=== PATIENT | male | born 1955 | race Caucasian/White ===

== ENCOUNTER 2017-08-27 22:41 | Inpatient (IN) | payer OTHER ==
[2017-08-27 23:10] LABS: ADD MAN DIFF? NO
[2017-08-27 23:14] LABS: WHITE BLOOD COUNT 14.3 10^3/ul (4.8-10.8)
[2017-08-27 23:14] LABS: BASOPHILS % 0.3 % (0.0-2.0); HEMOGLOBIN 11.5 g/dl (14.0-18.0); LYMPHOCYTES # 0.9 10^3/ul (0.8-2.9); LYMPHOCYTES % 6.2 % (15.0-51.0); MEAN CORPUSCULAR HEMOGLOBIN 28.6 pg (29.0-33.0); MEAN CORPUSCULAR HGB CONC 33.8 g/dl (32.0-37.0); MEAN CORPUSCULAR VOLUME 84.6 fl (82.0-101.0); MEAN PLATELET VOLUME 11.4 fl (7.4-10.4); MONOCYTE # 1.1 10^3/ul (0.3-0.9); MONOCYTES % 7.7 % (0.0-11.0); NEUTROPHIL # 12.2 10^3/ul (1.6-7.5); NEUTROPHILS % 85.4 % (39.0-77.0); PLATELET COUNT 205 10^3/UL (140-415); RED BLOOD COUNT 4.02 10^6/ul (4.70-6.10); RED CELL DISTRIBUTION WIDTH 17.2 % (11.5-14.5)
[2017-08-27] MEDS: SOD CHLORIDE 0.9% 500 ML IV (23:27)
[2017-08-27 23:30] LABS: ALANINE AMINOTRANSFERASE 17 IU/L (13-69); ALBUMIN 3.1 g/dl (3.3-4.9); ALBUMIN/GLOBULIN RATIO 0.91; ALKALINE PHOSPHATASE 88 IU/L (42-121); ANION GAP 34 (8-16); ASPARTATE AMINO TRANSFERASE 31 IU/L (15-46); BILIRUBIN,INDIRECT 0.4 mg/dl (0-1.1); BILIRUBIN,TOTAL 0.4 mg/dl (0.2-1.3); BLOOD UREA NITROGEN 36 mg/dl (7-20); CALCIUM 10.8 mg/dl (8.4-10.2); CARBON DIOXIDE 11 mmol/L (21-31); CHLORIDE 108 mmol/L (97-110); CREATININE 3.38 mg/dl (0.61-1.24); GLUCOSE 127 mg/dl (70-220); POTASSIUM 5.4 mmol/L (3.5-5.1); SODIUM 148 mmol/L (135-144); TOTAL PROTEIN 6.5 g/dl (6.1-8.1)
[2017-08-27 23:42] LABS: B-TYPE NATRIURETIC PEPTIDE 5080 PG/ML (0-125); TROPONIN-I 0.013 ng/ml (0.00-0.12)
[2017-08-28] MEDS: AZTREONAM 1 GM/NS (PMX) 50 ML IVPB (02:03)
[2017-08-28] MEDS ORDERED: SOD CHLORIDE 0.9% 1,000 ML IV (02:32)
[2017-08-28] MEDS: VANCOMYCIN 1 GM (PMX) 250 ML IVPB (02:50)
[2017-08-28] MEDS ORDERED: ACETAMINOPHEN 325 MG TAB PO (03:00)
[2017-08-28] MEDS ORDERED: morphine 2 MG INJ IV (03:00)
[2017-08-28] MEDS ORDERED: NACL 0.9% 3 ML SYG IV (03:00)
[2017-08-28] MEDS ORDERED: GLUCAGON 1 MG INJ IM (03:00)
[2017-08-28] MEDS ORDERED: GLUCOSE GEL 15 GRAM TUBE BUCCAL (03:00)
[2017-08-28] MEDS ORDERED: IPRATROPIUM (NEB) 0.5 MG/2.5 ML AMP HHN (03:00)
[2017-08-28] MEDS ORDERED: DEXTROSE 50% 50 ML SYRINGE IV ×2 (03:00)
[2017-08-28] MEDS ORDERED: ONDANSETRON 4 MG INJ IV (03:00)
[2017-08-28] MEDS ORDERED: GLUCOSE GEL 15 GRAM TUBE PO ×2 (03:00)
[2017-08-28] MEDS: NA POLYST SULFON 15 GM/60 ML BTL PO (03:00)
[2017-08-28] MEDS ORDERED: LEVALBUTEROL (NEB) 0.63 MG/3 ML AMP HHN (03:00)
[2017-08-28] MEDS ORDERED: AZTREONAM 2 GM in DEXTROSE 5% 100 ML IVPB (03:00)
[2017-08-28 03:39] LABS: LACTIC ACID 2.5 mmol/L (0.5-2.0)
[2017-08-28 06:01] LABS: ADD MAN DIFF? NO
[2017-08-28 06:11] LABS: WHITE BLOOD COUNT 13.5 10^3/ul (4.8-10.8)
[2017-08-28 06:11] LABS: BASOPHIL # 0.1 10^3/ul (0.0-0.1); BASOPHILS % 0.4 % (0.0-2.0); HEMATOCRIT 32.7 % (42.0-52.0); LYMPHOCYTES # 1.1 10^3/ul (0.8-2.9); LYMPHOCYTES % 7.8 % (15.0-51.0); MEAN CORPUSCULAR HEMOGLOBIN 28.4 pg (29.0-33.0); MEAN CORPUSCULAR HGB CONC 33.6 g/dl (32.0-37.0); MEAN CORPUSCULAR VOLUME 84.5 fl (82.0-101.0); MEAN PLATELET VOLUME 12.4 fl (7.4-10.4); MONOCYTE # 1.1 10^3/ul (0.3-0.9); MONOCYTES % 8.1 % (0.0-11.0); NEUTROPHIL # 11.3 10^3/ul (1.6-7.5); NEUTROPHILS % 83.3 % (39.0-77.0); PLATELET COUNT 174 10^3/UL (140-415); POSITIVE DIFF @See below; RED BLOOD COUNT 3.87 10^6/ul (4.70-6.10); RED CELL DISTRIBUTION WIDTH 16.9 % (11.5-14.5)
[2017-08-28 06:29] LABS: LACTIC ACID 1.7 mmol/L (0.5-2.0)
[2017-08-28 06:39] LABS: ALANINE AMINOTRANSFERASE 23 IU/L (13-69); ALBUMIN 2.9 g/dl (3.3-4.9); ALBUMIN/GLOBULIN RATIO 0.87; ALKALINE PHOSPHATASE 85 IU/L (42-121); ANION GAP 32 (8-16); ASPARTATE AMINO TRANSFERASE 17 IU/L (15-46); BILIRUBIN,INDIRECT 0.3 mg/dl (0-1.1); BILIRUBIN,TOTAL 0.3 mg/dl (0.2-1.3); BLOOD UREA NITROGEN 38 mg/dl (7-20); CALCIUM 10.6 mg/dl (8.4-10.2); CARBON DIOXIDE 12 mmol/L (21-31); CHLORIDE 110 mmol/L (97-110); CREATININE 3.39 mg/dl (0.61-1.24); GLUCOSE 139 mg/dl (70-220); POTASSIUM 4.6 mmol/L (3.5-5.1); SODIUM 149 mmol/L (135-144); TOTAL PROTEIN 6.2 g/dl (6.1-8.1)
[2017-08-28 06:53] LABS: CREATINE KINASE < 20 IU/L (23-200); TROPONIN-I < 0.012 ng/ml (0.00-0.12)
[2017-08-28] MEDS ORDERED: PENDING SANTYL ORDER FOR WOUND CARE XX (07:00)
[2017-08-28] MEDS: INSULIN ASPART [NOVOLOG] 3 ML PEN SC ×4 (08:27→22:20)
[2017-08-28] MEDS: HEPARIN 5,000 UNIT/0.5 ML VIAL SC ×2 (08:28→22:08)
[2017-08-28] MEDS ORDERED: VANCOMYCIN IV PER PHARMACY XX (09:00)
[2017-08-28 10:30] LABS: LACTIC ACID 1.4 mmol/L (0.5-2.0)
[2017-08-28 10:44] LABS: CK-MB 0.89 ng/ml (0.0-2.4); CREATINE KINASE < 20 IU/L (23-200); TROPONIN-I < 0.012 ng/ml (0.00-0.12)
[2017-08-28] MEDS ORDERED: AZTREONAM 1 GM/NS (PMX) 50 ML IVPB (11:00)
[2017-08-28] MEDS: AZTREONAM 0.5 GM in SOD CHLORIDE 0.9% 50 ML IVPB ×2 (13:09→22:02)
[2017-08-28] MEDS: INSULIN GLARGINE [LANtus] 3 ML PEN SC ×2 (20:00→22:20)
[2017-08-28] MEDS ORDERED: COLLAGENASE 30 GM TUBE TOP (23:45)
[2017-08-29] MEDS ORDERED: DOPamine-D5W 1.6 MG/ML 250 ML
[2017-08-29] MEDS: INSULIN ASPART [NOVOLOG] 3 ML PEN SC ×7 (01:59→20:58)
[2017-08-29] MEDS ORDERED: ACCU-CHEK XX ×2 (02:00)
[2017-08-29 05:21] LABS: WHITE BLOOD COUNT 10.3 10^3/ul (4.8-10.8)
[2017-08-29 05:21] LABS: HEMATOCRIT 31.1 % (42.0-52.0); HEMOGLOBIN 10.4 g/dl (14.0-18.0); MEAN CORPUSCULAR HEMOGLOBIN 27.7 pg (29.0-33.0); MEAN CORPUSCULAR HGB CONC 33.4 g/dl (32.0-37.0); MEAN CORPUSCULAR VOLUME 82.7 fl (82.0-101.0); MEAN PLATELET VOLUME 12.5 fl (7.4-10.4); PLATELET COUNT 178 10^3/UL (140-415); POSITIVE DIFF @See below; RED BLOOD COUNT 3.76 10^6/ul (4.70-6.10); RED CELL DISTRIBUTION WIDTH 17.1 % (11.5-14.5)
[2017-08-29 05:22] LABS: ADD MAN DIFF? YES
[2017-08-29 05:56] LABS: ANION GAP 20 (8-16); BLOOD UREA NITROGEN 54 mg/dl (7-20); CALCIUM 10.5 mg/dl (8.4-10.2); CARBON DIOXIDE 21 mmol/L (21-31); CHLORIDE 112 mmol/L (97-110); CREATININE 3.66 mg/dl (0.61-1.24); GLUCOSE 222 mg/dl (70-220); MAGNESIUM 1.9 mg/dl (1.7-2.5); PHOSPHORUS 2.6 mg/dl (2.5-4.9); POTASSIUM 3.4 mmol/L (3.5-5.1); SODIUM 150 mmol/L (135-144)
[2017-08-29] MEDS ORDERED: DEXTROSE 50% 50 ML SYRINGE (07:00)
[2017-08-29] MEDS ORDERED: ETOMIDATE 20 MG INJ (07:00)
[2017-08-29] MEDS ORDERED: NA BICARBONATE 8.4% 50 ML SYG (07:00)
[2017-08-29] MEDS ORDERED: AMIODARONE 150 MG INJ (07:00)
[2017-08-29] MEDS ORDERED: CA CHLORIDE 10% 10 ML SYRINGE (07:00)
[2017-08-29] MEDS ORDERED: LIDOCAINE 100 MG SYRINGE (07:00)
[2017-08-29] MEDS ORDERED: SUCCINYLCHOLINE CHLORIDE 100 MG/5 ML SYG IV (07:00)
[2017-08-29] MEDS ORDERED: EPINEPHrine 0.1 MG/ML SYG (07:00)
[2017-08-29 07:15] LABS: ANISOCYTOSIS 1+ (0-0); BAND NEUTROPHILS #M 1.4 10^3/ul (0.0-0.6); BAND NEUTROPHILS % (M) 14 % (0-4); BURR CELLS 3+ (0-0); GIANT THROMBO% (M) 1 % (0-0); HYPOCHROMASIA 1+ (0-0); LYMPHOCYTES #M 1.1 10^3/ul (0.8-2.9); LYMPHOCYTES % (M) 11 % (15-51); MONOCYTE #M 0.7 10^3/ul (0.3-0.9); MONOCYTES % (M) 7 % (0-11); PLATELET ESTIMATE NORMAL; POIKILOCYTOSIS 3+ (0-0); SEG NEUT #M 7.1 10^3/ul (1.6-7.5); SEGMENTED NEUTROPHILS (M) % 68 % (39-77); SMUDGE%M 9 % (0-0)
[2017-08-29] MEDS: AZTREONAM 0.5 GM in SOD CHLORIDE 0.9% 50 ML IVPB ×2 (09:00→20:50)
[2017-08-29] MEDS: COLLAGENASE 30 GM TUBE TOP (09:00)
[2017-08-29] MEDS: HEPARIN 5,000 UNIT/0.5 ML VIAL SC ×2 (09:00→20:56)
[2017-08-29] MEDS: BALSAM PERU/CASTOR OIL 60 GM TUBE TOP (17:36)
[2017-08-29] MEDS: INSULIN GLARGINE [LANtus] 3 ML PEN SC (20:57)
[2017-08-29] MEDS ORDERED: BALSAM PERU/CASTOR OIL 60 GM TUBE TOP (21:00)
[2017-08-29] MEDS: SOD CHLORIDE 0.9% 250 ML IV (22:00)
[2017-08-29] MEDS ORDERED: FENTAnyl (DRIP) 1000 mcg/100mL 100 ML IV (23:30)
[2017-08-30] MEDS ORDERED: ETOMIDATE 20 MG INJ IV (02:30)
[2017-08-30] MEDS ORDERED: SUCCINYLCHOLINE CHLORIDE 100 MG/5 ML SYG IV (02:30)
== END 2017-08-29 23:51 | disposition expired | DRG 871 ==
LOC: MS2 08-28 02:13 → E/R 22:41 → MS2 08-28 03:15 → ICU 08-29 23:00 → MS2 08-28 05:00
PROC: 0BH17EZ Insertion of Endotracheal Airway into Trachea, Via Natural or Artificial Opening (ICD-10-PCS; principal; 2017-08-29)
PROC: 5A1935Z Respiratory Ventilation, Less than 24 Consecutive Hours (ICD-10-PCS; 2017-08-29)
DX: A41.9 Sepsis, unspecified organism (principal); J18.9 Pneumonia, unspecified organism; N18.6 End stage renal disease; G92 Toxic encephalopathy; N17.9 Acute kidney failure, unspecified; R64 Cachexia; I12.0 Hypertensive chronic kidney disease with stage 5 chronic kidney disease or end stage renal disease; E87.0 Hyperosmolality and hypernatremia; I69.954 Hemiplegia and hemiparesis following unspecified cerebrovascular disease affecting left non-dominant side; Z68.1 Body mass index [BMI] 19.9 or less, adult; R13.10 Dysphagia, unspecified; E11.22 Type 2 diabetes mellitus with diabetic chronic kidney disease; E03.9 Hypothyroidism, unspecified; Z96.642 Presence of left artificial hip joint; E87.6 Hypokalemia; Z99.2 Dependence on renal dialysis; Z74.01 Bed confinement status; Z79.4 Long term (current) use of insulin; I49.01 Ventricular fibrillation
CPT/HCPCS: 31500; 36415; 71045; 71250; 73510; 74018; 80048; 80053; 82550; 82553; 82962; 83605; 83735; 83880; 84100; 84443; 84484; 85025; 87040; 87070; 87081; 89220; 92610; 92950; 93005; 93308; 94002; 94770; 96374; 96375; 99285-25